=== PATIENT | female | born 2000 | race Caucasian/White ===

== ENCOUNTER 2022-01-26 10:43 | Emergency (ER) | payer SELFPAY ==
[2022-01-26 11:41] LABS: Hematocrit 36.1 % (30.3-42.9); Hemoglobin 11.9 gm/dl (10.1-14.3); Mean Corpuscular HGB Conc 33 % (30-34); Mean Corpuscular Volume 81 fl (79-97); Platelet Count 251 K/mm3 (140-440); Red Blood Count 4.43 M/mm3 (3.65-5.03); Red Cell Distribution Width 18.2 % (13.2-15.2)
[2022-01-26 11:57] LABS: Alanine Aminotransferase 9 units/L (7-56); Albumin 4.2 g/dL (3.9-5); Blood Urea Nitrogen 4 mg/dL (7-17); Calcium 9.3 mg/dL (8.4-10.2); Hemolysis Index 4
[2022-01-26 11:59] LABS: BUN/Creatinine Ratio 8
--- NOTE | 2022-01-26 12:15 | Ultrasound Report ---
FIRSTTRIMESTER OBSTETRIC ULTRASOUND HISTORY: Vaginal bleeding during COMPARISON: None. TECHNIQUE: Routine transabdominal OB ultrasound performed. FINDINGS: Uterus: Mildly enlarged measuring 12 x 8 x 8 cm. Gestational Sac: Well-defined oval shape and intrauterine in location. Yolk Sac: Normal in appearance. Fetus/Embryo: [place]-rump length of 4.12 cm, corresponding to an estimated gestational age of 11 weeks 0 days. Embryonic/ anatomy is too small for evaluation. Embryonic/ cardiac activity: 174bpm Placenta: Too small for evaluation. Amniotic fluid volume: Subjectively appropriate for gestational age. Ovaries: The right ovary is normal in size and appearance with normal blood flow, measuring 1.9 x 1. 2 x 1.8 cm. The left ovary is normal in size and appearance with normal blood flow, measuring 2.4 x 2.2 x 2.6 cm. Additional findings: None. IMPRESSION Viable single intrauterine dated at 11 weeks 0 days. No acute abnormality is detected. Signer Name: Josue Schroeder Jr, MD Signed: 01/26/2022 12:11 PM Workstation Name: [id number]
[2022-01-26 15:26] LABS: Bilirubin,Urine NEG (Negative); Blood,Urine NEG (Negative); Color,Urine Straw (Yellow); Mucus,Urine FEW /HPF; Protein,Urine <15 mg/dL mg/dL (Negative); Urobilinogen,Urine < 2.0 mg/dL (<2.0)
--- NOTE | 2022-01-26 15:42 | Emergency Department Report ---
ED HPI - General Chief complaint: Vaginal Bleeding Stated complaint: ABD PAIN/N/V/2 MONTHS PREG Time Seen by Provider: 01/26/22 14:04 Source: patient Mode of arrival: Ambulatory Limitations: Language Barrier - History of Present Illness Initial comments: 21 yo female who is at about 12 weeks gestation presents to ed for evaluation of vaginal bleeding and abdominal pain that started 2 days ago along with n/v. She denies dysuria and fever. MD Complaint: abdominal pain, vaginal bleeding -: Gradual, days(s) (2) Location: abdomen Radiation: LLQ, RLQ Severity: moderate Severity scale (0 -10): 5 Quality: cramping Consistency: intermittent Associated symptoms: nausea/vomiting, vaginal bleeding, abdominal pain. denies: vaginal discharge, dysuria, headache, malaise, dysparuenia, rash, seizure, shortness of breath, syncope, weakness Vaginal bleeding: light :: Yes Number of weeks : 11 OB History - Current : no complications OB History - Previous Pregnancies: no complications - Related Data Previous Rx's Medication Instructions Recorded Last Taken Type Ondansetron [Zofran Odt] 4 mg PO Q8HR PRN #12 tab.rapdis 01/26/22 Unknown Rx Allergies Allergy/AdvReac Type Severity Reaction Status Date / Time No Known Allergies Allergy Verified 01/26/22 10:48 ED Review of Systems ROS: Stated complaint: ABD PAIN/N/V/2 MONTHS PREG Other details as noted in HPI Comment: All other systems reviewed and negative Constitutional: denies: chills, fever ENT: denies: congestion Respiratory: denies: cough, shortness of breath, SOB with exertion, SOB at rest Cardiovascular: denies: chest pain, palpitations, orthopnea Gastrointestinal: abdominal pain. denies: nausea, vomiting, diarrhea, constipation Genitourinary: denies: urgency, dysuria, frequency, hematuria, discharge, dyspareunia Musculoskeletal: denies: back pain Skin: denies: rash Neurological: denies: headache, weakness, numbness, paresthesias ED Past Medical Hx - Past Medical History Previous Medical History?: Yes - Social History Smoking Status: Never Smoker Substance Use Type: None - Medications Home Medications: Home Medications Medication Instructions Recorded Confirmed Last Taken Type Ondansetron [Zofran Odt] 4 mg PO Q8HR PRN #12 tab.rapdis 01/26/22 Unknown Rx ED Physical Exam - General Limitations: Language Barrier General appearance: alert, in no apparent distress - Head Head exam: Present: atraumatic, normocephalic - Eye Eye exam: Present: normal appearance. Absent: conjunctival injection - ENT ENT exam: Present: normal exam - Neck Neck exam: Present: normal inspection, full ROM. Absent: tenderness, lymphadenopathy - Respiratory Respiratory exam: Present: normal lung sounds bilaterally. Absent: respiratory distress, wheezes, rales, rhonchi, stridor, chest wall tenderness - Cardiovascular Cardiovascular Exam: Present: regular rate, normal heart sounds - GI/Abdominal GI/Abdominal exam: Present: soft, normal bowel sounds. Absent: distended, ten derness, guarding, rebound, rigid - Extremities Exam Extremities exam: Present: normal inspection, normal capillary refill. Absent: tenderness, pedal edema, joint swelling, calf tenderness - Back Exam Back exam: Present: normal inspection, full ROM. Absent: tenderness, CVA tenderness (R), CVA tenderness (L) - Neurological Exam Neurological exam: Present: alert, oriented X3, normal gait - Psychiatric Psychiatric exam: Present: normal affect, normal mood - Skin Skin exam: Present: warm, dry, intact, normal color ED Course Vital Signs 01/26/22 01/26/22 10:45 15:00 Temperature 98.6 F Pulse Rate 92 H 68 Respiratory 16 17 Rate Blood Pressure 130/87 Blood Pressure 105/56 [Right] O2 Sat by Pulse 98 100 Oximetry ED Medical Decision Making - Lab Data Result diagrams: 01/26/22 11:20 01/26/22 11:20 - Radiology Data Radiology results: report reviewed US: Findings: Uterus: Mildly enlarged measuring 12 X 8 X cm. Gestational sac: Well-defined oval shape and intrauterine in location. Yolk sac: Normal in appearance. Fetus/embryo: [place]-rump length of 4.12 cm, corresponding to an estimated gestational age of 11 weeks 0 days. Embryonic/ anatomy is too small for evaluation. Embryonic/ cardiac activity: 174bpm Placenta: Too small for evaluation, Amniotic fluid volume: Subjectively appropriate for gestational age. Ovaries: the right ovary is normal in size and appearance with normal blood flow, measuring 1.9 X 1.2 X 1.8. The left ovary is normal in size and appearan ce with normal blood flow, measuring 2.4 X 2.2 X 2.6 cm. Additional findings: none Impression: Viable single intrauterine dated at 11 weeks 0 days. No acute abnormalities detected. - Medical Decision Making 21 yo female who is at about 12 weeks gestation presents to ed for evaluation of vaginal bleeding and abdominal pain that started 2 days ago along with n/v. She denies dysuria and fever. No gross abnormalities noted on exam or labs. UA negative for UTI. US noted to have single IUP with no gross abnormalities noted. She will be discharged home to follow up with shoe sprayer for further evaluation and management. She is advised to continue vitamins, use Zofran as needed for n/v and follow up with her shoe sprayer or in ed for concerning symptoms. She verbalized understanding of an agreement with plan of care. Critical care attestation.: If time is entered above; I have spent that time in minutes in the direct care of this critically ill patient, excluding procedure time. ED Disposition Clinical Impression: Vaginal bleeding during , Abdominal pain affecting Disposition: 01 HOME / SELF CARE / HOMELESS Is pt being admited?: No Does the pt Need Aspirin: No Condition: Stable Instructions: Abdominal Pain During , [id number], Vaginal Bleeding During , First Trimester Additional Instructions: Take medications as prescribed. Follow-up with ADMINISTRATIVE DIETITIAN for further evaluation management and routine care. Return to the emergency department as needed. Prescriptions: Ondansetron [Zofran Odt] 4 mg PO Q8HR PRN #12 tab.rapdis PRN Reason: Nausea And Vomiting Referrals: [facility] [Provider Group] - 3-5 Days Time of Disposition: 15:41 Print Language: FAROESE
[2022-01-26 19:33] VITALS: BP 105/56
== END 2022-01-26 15:00 | disposition home or self-care (01) ==
LOC: ED 10:43
DX: O20.8 Other hemorrhage in early pregnancy (principal); R10.32 Left lower quadrant pain; Z3A.12 12 weeks gestation of pregnancy
CPT/HCPCS: 36415; 76801; 80053; 81001; 84702; 85027; 99284